=== PATIENT | female | born 1930 | race African-American/Black ===

== ENCOUNTER 2017-11-13 23:27 | Inpatient (IN) | payer OTHER ==
[~2017-11-13] VITALS: Ht 144.8 cm; Wt 68.0 kg
[~2017-11-13 23:27] MED LIST: ADVAIR 2501 DISK W/1 IH; AMLODIPINE BESYL5 MG; CALTRATE 61 TAB.CHEW PO; CRESTOR20 MG PO; DOXAZOSIN MESYLA2 MG; LIPITOR40 MG; NEURONTIN300 MG PO; OMEPRAZOLE20 MG; SIMVASTATIN80 MG; SPIRIVIA; TARKA 2/2401 BOTTLE PO; VERAPAMIL ER200 MG; ZESTRIL5 MG
[2017-11-18] MEDS ORDERED: DOXAZOSIN MESYLA2 MG PO (11:55)
[2017-11-18] MEDS ORDERED: FLAGYL500MG PO (11:56)
[2017-11-18] MEDS ORDERED: LIPITOR40 MG PO (11:57)
[2017-11-18] MEDS ORDERED: ZESTRIL5 MG PO (11:57)
[2017-11-18] MEDS ORDERED: NEURONTIN300 MG PO (11:57)
[2017-11-18] MEDS ORDERED: OMEPRAZOLE20 MG PO (11:58)
[2017-11-18] MEDS ORDERED: CIPRO500 MG PO (11:58)
[2017-11-18] MEDS ORDERED: RISA-BID CAPLE1 EACH PO (11:59)
== END 2017-11-18 13:24 | DRG 392 ==
LOC: ER 23:27 → SEC-K 11-14 13:45 → MEDI 11-14 18:14 → SEC-K 11-14 18:28 → MEDJ 11-15 15:34
PROC: BW21ZZZ Computerized Tomography (CT Scan) of Abdomen and Pelvis (ICD-10-PCS; principal; 2017-11-14)
DX: K57.32 Diverticulitis of large intestine without perforation or abscess without bleeding (principal); I10 Essential (primary) hypertension; E78.4 Other hyperlipidemia; E86.0 Dehydration

== ENCOUNTER 2018-12-13 07:54 | Outpatient (CLI) | payer OTHER ==
[~2018-12-13 07:54] MED LIST changes: +CIPRO500 MG PO; +DOXAZOSIN MESYLA2 MG PO; +FLAGYL500MG PO; +LIPITOR40 MG PO; +OMEPRAZOLE20 MG PO; +RISA-BID CAPLE1 EACH PO; +ZESTRIL5 MG PO
== END 2018-12-13 08:02 | disposition home or self-care (01) ==
LOC: RAD 07:54
DX: R05 Cough (principal); R06.02 Shortness of breath; J44.1 Chronic obstructive pulmonary disease with (acute) exacerbation

== ENCOUNTER 2019-04-18 10:17 | Emergency (ER) | payer OTHER ==
[~2019-04-18] VITALS: Ht 165.1 cm; Wt 68.0 kg
[2019-04-18] MEDS ORDERED: LISINOPRIL20 MG (10:58)
[2019-04-18] MEDS ORDERED: SYMBICORT 16010.2 GM (10:59)
== END 2019-04-18 19:37 | disposition home or self-care (01) ==
LOC: ER 10:17
DX: K57.30 Diverticulosis of large intestine without perforation or abscess without bleeding (principal); R10.32 Left lower quadrant pain; J11.1 Influenza due to unidentified influenza virus with other respiratory manifestations

== ENCOUNTER 2019-06-08 08:10 | Emergency (ER) | payer OTHER ==
[~2019-06-08] VITALS: Ht 149.9 cm; Wt 63.5 kg
[~2019-06-08 08:10] MED LIST changes: +LISINOPRIL20 MG; +SYMBICORT 16010.2 GM
[2019-06-08] MEDS ORDERED: DICY20TA PO (12:40)
== END 2019-06-08 13:01 | disposition home or self-care (01) ==
LOC: ER 08:10
DX: K59.09 Other constipation (principal)

== ENCOUNTER 2019-12-29 13:30 | Emergency (ER) | payer OTHER ==
[~2019-12-29] VITALS: Ht 152.4 cm; Wt 63.5 kg
[~2019-12-29 13:30] MED LIST changes: +DICY20TA PO
== END 2019-12-29 20:56 | disposition home or self-care (01) ==
LOC: ER 13:30
DX: K57.30 Diverticulosis of large intestine without perforation or abscess without bleeding (principal); R10.32 Left lower quadrant pain